=== PATIENT | female | born 1970 | race Caucasian/White ===

== ENCOUNTER 2017-01-15 18:16 | Emergency (ER) | payer SELFPAY ==
[2015-01-04 12:20] VITALS: BMI 25.7
[~2017-01-15 18:16] MED LIST: BENTYL10 MG PO; CALCIUM 600 +1 EAC3 PO; CYMBALTA30 MG PO; DICLOFENAC SODI50 MG PO; FISH OIL 1,0001 CA1 PO; MULTIPLE VITAMI1 TA1 PO; PRAVACHOL40 MG PO; ROBAXIN-750750 MG PO
[2017-01-15 18:57] LABS: BASOPHILS 0.2 % (0-2); EOSINOPHILS 0.1 % (0-7); HEMATOCRIT 38.7 % (36.0-48.0); HEMOGLOBIN 13.7 g/dL (12-16); IMMATURE GRANULOCYTES 0.4 % (0-5); MCH 31.4 pg (26.0-34.0); MCHC 35.4 g/dL (31.0-37.0); MCV 88.6 fL (80.0-100.0); MEAN PLATELET VOLUME 10.3 fL (7.4-10.4); MONOCYTES 2.9 % (2-11); NEUTROPHILS 80.4 % (40-80); PLATELET COUNT 311 10x3/uL (130-400); RBC 4.37 10x6/uL (4.00-5.40); RDW 12.4 % (11.5-14.5); WBC 12.9 10x3/uL (4.8-10.8)
[2017-01-15 19:25] LABS: ANION GAP 17.2 mmol/L (8-16); BILIRUBIN - TOTAL 0.54 mg/dL (0.2-1.3); CALCIUM 9.6 mg/dL (8.5-10.1); CARBON DIOXIDE 24.7 mmol/L (21.0-32.0); POTASSIUM - SERUM 3.9 mmol/L (3.5-5.1); PROTEIN - SERUM 7.3 g/dL (6.4-8.2)
[2017-01-15 20:15] LABS: HCG SERUM NEGATIVE (NEGATIVE)
== END 2017-01-15 22:11 | disposition home or self-care (01) ==
LOC: D.ER 18:16
PROVIDERS: Emergency Medicine; Physician Assistant
DX: K52.9 Noninfective gastroenteritis and colitis, unspecified (principal); F17.200 Nicotine dependence, unspecified, uncomplicated

== ENCOUNTER → 2018-01-28 05:21 | Outpatient (CLI) | payer MEDICAID ==
[2015-01-04 12:20] VITALS: BMI 25.7
== END | disposition home or self-care (01) ==
LOC: D.MAMMO 05:21
DX: N64.4 Mastodynia (principal); N63.10 Unspecified lump in the right breast, unspecified quadrant; N64.59 Other signs and symptoms in breast